=== PATIENT | female | born 1970 | race Two or more races ===

== ENCOUNTER → 2020-06-18 | Outpatient (CLI) | payer OTHER ==
[~2020-06-18] MED LIST: ALBU90OI6; CALCAVITD PO; CALCIUM PO; CEFD300 PO; CEPH500 PO; DOCU100 PO; DULCOLAX400 MG/5 M PO; ESTRADIOL PO; Estradiol1 MG; FERR325 PO; FERSU300 PO; FIBER GUMMIES1 EACH; FIBER PO; GABA300; GABA300 PO; Guaifenesin-Co118 ML PO; IBUP800; IBUP800 PO; METPRE4DP PO; MULVITMINE; NORGESTIMATE-E1 EAC1 PO; OXYACE5T PO; PROACE100 PO; PROAIR DIGIHAL90 MCG INH; PROBIOTIC1 EA13 PO; PROBIOTIC1 EAC1; PROG100; Percocet 5-3251 EACH PO; Prednisone20 MG PO; SENN187 PO; SIME80CH PO; TOPI25; TOPI25 PO; TRAM50 PO
[2020-06-22 16:09] LABS: HPV 16 Negative (Negative); HPV 18 Negative (Negative); HPV OTHER HR TYPES Negative (Negative)
== END | disposition home or self-care (01) ==
LOC: LAB 18:54
PROVIDERS: Family Medicine
DX: Z01.419 Encounter for gynecological examination (general) (routine) without abnormal findings (principal)
CPT/HCPCS: 87624; G0123

== ENCOUNTER 2020-10-07 05:54 | Day surgery (SDC) | payer OTHER ==
[2020-10-05 17:40] LABS: BASOPHILS ABSOLUTE AUTO 0.03 K/mm3 (0.00-0.23); BASOPHILS PERCENT AUTO 0 % (0-2); EOSINOPHILS ABSOLUTE AUTO 0.14 K/mm3 (0.00-0.68); EOSINOPHILS PERCENT AUTO 2 % (0-6); Hematocrit 40.9 % (33.0-51.0); Hemoglobin 14.3 g/dL (11.5-16.0); IMMATURE GRAN ABSOLUTE AUTO 0.01 K/mm3 (0.00-0.10); IMMATURE GRAN PERCENT AUTO 0 % (0-1); LYMPHOCYTES PERCENT AUTO 51 % (21-46); MONOCYTES ABSOLUTE AUTO 0.52 K/mm3 (0.16-1.47); MONOCYTES PERCENT AUTO 7 % (4-13); Mean Corpuscular HGB 31.4 pg (26.0-34.0); Mean Corpuscular Volume 90 fL (80-100); Mean Platelet Volume 10.6 fL (9.1-12.4); NEUTROPHILS ABSOLUTE AUTO 3.14 K/mm3 (1.96-9.15); NEUTROPHILS PERCENT AUTO 40 % (41-73); Platelet Count 214 K/mm3 (150-400); RDW Coefficient Variation 11.7 % (11.7-14.2); RDW Standard Deviation 38.3 fL (35.1-46.3); Red Blood Cell Count 4.55 M/mm3 (3.80-5.20); White Blood Cell Count 7.84 K/mm3 (4.00-11.30)
[~2020-10-07] VITALS: Ht 157.5 cm; Wt 96.0 kg
[~2020-10-07 05:54] MED LIST changes: -DOCU100 PO; -DULCOLAX400 MG/5 M PO; -Percocet 5-3251 EACH PO; -SENN187 PO; -SIME80CH PO
--- NOTE | 2020-10-07 06:59 | NUR ---
Ambulatory in Day Surgery History, Chart, Medications and Allergies reviewed before start of procedure. Lungs clear T/O to Auscultation. Pre-Op teaching done. Pt verbalizes understanding.
--- NOTE | 2020-10-07 16:40 | NUR ---
SHIFT SUMMARY PT POD #0 FOR TRACHELECTOMY, A/O X4 PLEASANT AND COOPERATIVE WITH CARE. 2 LAP INCISIONS ON ABD WITH DERMABOND; C/D/I. ADKINS IN PLACE, PATENT AND DRAINING. MEDICATED FOR PAIN X1. TOLERATING PO INTAKE WELL. RESTING COMFORTABLY IN BED WITH CALL LIGHT IN REACH.
--- NOTE | 2020-10-08 04:58 | NUR ---
SHIFT SUMMARY POD1 TRACHELECTOMY W/ DR DUMONT. PT AOX4. VSS. SBA IN THE ROOM. PT REPORTS PAIN MEDICATED WITH TORADOL AND PERCOCET 10MG. BT PRESENT, REMAIN HYPOACTIVE. PT HAS PASS FLATUS. DENIES BM. URINARY CATHETER WAS DC'D AT MIDNIGHT WITH 500 ML OUTPUT. VOIDING WELL DENIES DIFFICULTY/PROBLEMS. TOLERATING REG DIET. REPORTS NAUSEA AT 4AM, MEDICATED WITH ZOFRAN ONCE. PERIPAD WITH SCANT BLEED. IV ON LEFT FOREARM, SALINE LOCKED. SCD IN PLACED. CALL LIGHT WITHIN REACH. WILL PROVIDE REPORT TO ONCOMING AM NURSE.
--- NOTE | 2020-10-08 11:40 | NUR ---
Advance Directive(AD) education/Spiritual Care visit conducted. Patient expresses interest and so I hand patient the AD booklet and go over the importance, puspose, sections of the booklet and the filing process. Patient demonstrates clear understanding and states that she will fill out AD and hand it in to her PCP. Spiritual care is given as patient shares about her medical and family history and then talks at length about her spiritual journey. I listen empathically and provide spiritual guidance and prayer. Patient responds well and shows signs of being encouraged in her livier. I will continue to remain available to patient and family.
[2020-10-08] MEDS ORDERED: DOCU100 PO (13:24)
[2020-10-08] MEDS ORDERED: DULCOLAX400 MG/5 M PO (13:25)
[2020-10-08] MEDS ORDERED: SENN187 PO (13:26)
[2020-10-08] MEDS ORDERED: Percocet 5-3251 EACH PO (13:26)
[2020-10-08] MEDS ORDERED: SIME80CH PO (13:27)
--- NOTE | 2020-10-08 13:45 | NUR ---
Discharge summary Patient discharged home. IV out. Discharge instructions given, explained and signed. Patient to follow up with Dr. Zamora. Patient denied questions or concerns at discharge. Patient left unit via wheelchair escort.
[2021-01-06] MEDS ORDERED: PROBIOTIC1 EA13 PO (10:25)
== END 2020-10-08 13:35 | disposition home or self-care (01) ==
LOC: ORSCSDS 05:54 → ORSCMMR 05:54 → ORSCSDS 09:45 → SURS 10:50 → ORSCSDS 10-08 09:45
PROVIDERS: Obstetrics & Gynecology
PROC: 0UBC7ZZ Excision of Cervix, Via Natural or Artificial Opening (ICD-10-PCS; principal; 2020-10-07 07:30)
PROC: 0UJD4ZZ Inspection of Uterus and Cervix, Percutaneous Endoscopic Approach (ICD-10-PCS; principal; 2020-10-07 07:30)
DX: N76.89 Other specified inflammation of vagina and vulva (principal); D50.9 Iron deficiency anemia, unspecified; G47.33 Obstructive sleep apnea (adult) (pediatric); J45.909 Unspecified asthma, uncomplicated; E66.01 Morbid (severe) obesity due to excess calories; Z68.38 Body mass index [BMI] 38.0-38.9, adult; Z79.899 Other long term (current) drug therapy
CPT/HCPCS: 36415; 85025; 86850; 86900; 86901; 88305; A9270; J0690; J1100; J1885; J2250; J2370; J2405; J2550; J2704; J2710; J3010; J7050; J7120

== ENCOUNTER 2021-01-13 07:31 | Day surgery (SDC) | payer OTHER ==
[~2021-01-13] VITALS: Ht 160 cm; Wt 96.1 kg
[~2021-01-13 07:31] MED LIST changes: +DOCU100 PO; +DULCOLAX400 MG/5 M PO; +Percocet 5-3251 EACH PO; +SENN187 PO; +SIME80CH PO
--- NOTE | 2021-01-13 09:19 | NUR ---
01/13/21 0919 Mona Lee 0.15CC EPI MIXED WITH 30CC 0.5% MARCAINE TO GET 0.5% MARCAINE WITH EPI 1:100,000. MIXTURE VERIFIED WITH RN.
== END 2021-01-13 10:37 | disposition home or self-care (01) ==
LOC: ORSCSDS 07:31
PROVIDERS: Obstetrics & Gynecology
PROC: 0UBG7ZZ Excision of Vagina, Via Natural or Artificial Opening (ICD-10-PCS; principal; 2021-01-13 08:45)
DX: N89.8 Other specified noninflammatory disorders of vagina (principal); G47.33 Obstructive sleep apnea (adult) (pediatric); J45.909 Unspecified asthma, uncomplicated; E66.01 Morbid (severe) obesity due to excess calories; Z68.37 Body mass index [BMI] 37.0-37.9, adult; Z87.891 Personal history of nicotine dependence
CPT/HCPCS: 88305; J0171; J0690; J1100; J1885; J2250; J2405; J2704; J3010; J7120

== ENCOUNTER → 2022-02-05 | Outpatient (CLI) | payer OTHER | END | disposition home or self-care (01) | LOC: LAB SHORT 16:27 → LAB 16:27 | DX: N39.0 Urinary tract infection, site not specified (principal) | CPT/HCPCS: 87077; 87086; 87186 ==

== ENCOUNTER → 2022-10-03 | Outpatient (CLI) | payer OTHER | END | disposition home or self-care (01) | LOC: LAB 15:40 → LAB SHORT 15:40 | DX: R30.0 Dysuria (principal) | CPT/HCPCS: 87077; 87086; 87186 ==

== ENCOUNTER → 2022-11-07 | Outpatient (CLI) | payer OTHER | END | disposition home or self-care (01) | LOC: LAB 18:00 → LAB SHORT 18:00 | DX: N39.0 Urinary tract infection, site not specified (principal) | CPT/HCPCS: 87086 ==

== ENCOUNTER 2024-08-22 12:26 | Day surgery (SDC) | payer OTHER ==
[~2024-08-22] VITALS: Ht 157.5 cm; Wt 61.8 kg
[~2024-08-22 12:26] MED LIST changes: +Lactated Ringer's 1,000 ML IV ONE; +propofoL 50 ML IV ONE
[2024-08-22] MEDS ORDERED: PRAZ1 (13:04)
[2024-08-22] MEDS ORDERED: MOVANTIK25 M1 (13:04)
[2024-08-22] MEDS ORDERED: Cyclobenzaprine5 MG (13:04)
[2024-08-22] MEDS ORDERED: VIT D2-K1 20-1259 ML (13:04)
[2024-08-22] MEDS ORDERED: TRAM50 (13:04)
[2024-08-22] MEDS ORDERED: TRIAMCINOL (13:05)
[2024-08-22] MEDS ORDERED: Lactated Ringer's 1,000 ML IV ONE (14:04)
--- NOTE | 2024-08-22 14:43 | NUR ---
08/22/24 1443 Avril Schilling BG CHECKED IN OR D/T HX OF DM. B AT 1419. AWARE.
[2024-08-22 15:15] VITALS: BP 108/87
== END 2024-08-22 15:19 | disposition home or self-care (01) ==
LOC: ORSCSDS 12:26
PROVIDERS: Internal Medicine Gastroenterology
PROC: 0DJD8ZZ Inspection of Lower Intestinal Tract, Via Natural or Artificial Opening Endoscopic (ICD-10-PCS; principal; 2024-08-22 14:00)
DX: R10.84 Generalized abdominal pain (principal); K62.5 Hemorrhage of anus and rectum; K59.09 Other constipation; Z79.899 Other long term (current) drug therapy; M79.7 Fibromyalgia; G47.33 Obstructive sleep apnea (adult) (pediatric); J44.9 Chronic obstructive pulmonary disease, unspecified
CPT/HCPCS: 82947; J2704; J7120